=== PATIENT | female | born 1970 | race Caucasian/White ===

== ENCOUNTER 2018-02-05 18:42 | Emergency (ER) | payer SELFPAY ==
--- NOTE | 2018-02-05 18:51 | PDOC ---
Rapid Medical Evaluation Chief Complaint: Pain, Acute Time Seen by Provider: 02/05/18 18:48 Medical Evaluation: 02/05/18 18:49 CC: right arm pain HPI: Pt is a 47 YO female with right arm pain and edema x 4 days. Denies injury or trauma, denies hx of IV placement in this extremity. Pt denies hx of DVTs. I have performed a brief in- person evaluation of this patient. Pertinent Physical Findings: Skin: Clear Lungs: Clear Heart: RRR MS. Right UE is larger than the left UE. Radial pulses present, cap refill less than 2 seconds, sensation intact. Neuro: Alert Psych: Appropriate affect I have ordered: US of right UE. The patient will proceed to: Main ED for further evaluation Discharge Disposition - Diagnosis Arm edema - Referrals - Patient Instructions - Post Discharge Activity
[2018-02-05 19:00] VITALS: BP 132/98; PULSE 80; TEMP 98.4; BMI 33.3
[2018-02-05] MEDS ORDERED: KETOROLAC TROMETHAMINE 30 MG/1 ML VIAL IM ONE (20:24)
--- NOTE | 2018-02-05 20:24 | PDOC ---
History of Present Illness - General Chief Complaint: Pain, Acute Stated Complaint: RT ARM PAIN Time Seen by Provider: 02/05/18 18:48 Past History - Past Medical History Allergies/Adverse Reactions: Allergies Allergy/AdvReac Type Severity Reaction Status Date / Time No Known Allergies Allergy Verified 02/05/18 18:58 Home Medications: Ambulatory Orders NK [No Known Home Medication] 02/05/18 COPD: No CHF: No - Immunization History Immunization Up to Date: Yes - Suicide/Smoking/Psychosocial Hx Smoking History: Never smoked Hx Alcohol Use: No Drug/Substance Use Hx: No Substance Use Type: None *Physical Exam - Vital Signs Last Vital Signs Temp Pulse Resp BP Pulse Ox 98.4 F 80 16 132/98 100 02/05/18 18:58 02/05/18 18:58 02/05/18 18:58 02/05/18 18:58 02/05/18 18:58 *DC/Admit/Observation/Transfer Diagnosis at time of Disposition: Carpal tunnel syndrome Qualifiers: Laterality: right Qualified Code(s): G56.01 - Carpal tunnel syndrome, right upper limb - Discharge Dispostion Disposition: HOME Condition at time of disposition: Stable Decision to Admit order: No - Referrals Referrals: Jose Alberto Camarillo MD [Primary Care Provider] - Erasmo Dotson MD [Staff Physician] - - Patient Instructions Printed Discharge Instructions: DI for Carpal Tunnel Syndrome Additional Instructions: Your testing today was negative for blood clots Given the location of your pain, you may have carpal tunnel Wear the wrist brace to keep the hand in a neutral position. Sleep with this on You may take 800mg of Motrin every 6 hours as needed for pain not to exceed 3, 000mg a day Follow up with orthopedics. A referral has been provided for you. Return to the ED for any new or worsening symptoms - Post Discharge Activity Forms/Work/School Notes: Back to Work
[2018-02-05] MEDS ORDERED: KETOROLAC TROMETHAMINE 30 MG/1 ML VIAL ONE (20:32)
== END 2018-02-05 21:23 | disposition home or self-care (01) ==
LOC: JERFT 18:42
PROC: 3E0233Z Introduction of Anti-inflammatory into Muscle, Percutaneous Approach (ICD-10-PCS; principal; 2018-02-05)
DX: G56.01 Carpal tunnel syndrome, right upper limb (principal)
CPT/HCPCS: 93971; 99281-25